=== PATIENT | male | born 1990 | race Caucasian/White ===

== ENCOUNTER 2021-03-31 18:06 | Emergency (ER) | payer BC ==
[~2021-03-31] VITALS: Ht 180.3 cm; Wt 97.5 kg
[2021-03-31 18:14] VITALS: BP 140/78
[2021-03-31] MEDS ORDERED: HYDR-4303 PO (19:09)
[2021-03-31] MEDS ORDERED: IBUP-1955 PO (19:09)
--- NOTE | 2021-03-31 19:40 | NUR ---
Patient discharged to home in stable condition. Rx and Written and verbal after care instructions given. Patient verbalizes understanding of instruction.
== END 2021-03-31 19:41 | disposition home or self-care (01) ==
LOC: ER 18:06
DX: S52.124A Nondisplaced fracture of head of right radius, initial encounter for closed fracture (principal); Z79.899 Other long term (current) drug therapy; W01.0XXA Fall on same level from slipping, tripping and stumbling without subsequent striking against object, initial encounter; Y93.66 Activity, soccer; Y92.89 Other specified places as the place of occurrence of the external cause; Y99.8 Other external cause status
CPT/HCPCS: 73080-TC